=== PATIENT | male | born 1990 | race Caucasian/White ===

== ENCOUNTER 2024-07-30 19:44 | Emergency (ER) | payer OTHER ==
[~2024-07-30] VITALS: Ht 172.7 cm; Wt 72.7 kg
[2024-07-30 19:51] VITALS: BP 113/58; PULSE 89; RESP 18; TEMP 97.8; O2SAT 97
== END 2024-07-30 20:24 ==
LOC: EDBD 19:46 → ER 19:46
DX: Z02.89 Encounter for other administrative examinations (principal); M25.512 Pain in left shoulder
CPT/HCPCS: 99283